=== PATIENT | male | born 1960 | race Caucasian/White ===

== ENCOUNTER 2023-08-03 19:13 | Emergency (ER) | payer OTHER, SELFPAY ==
[2023-08-03] VITALS (8 sets, daily range): BP systolic 167–217; BP diastolic 72–93; PULSE 112–127; RESP 19–29; TEMP 37.1; O2SAT 94–99; BMI 15.7
--- NOTE | 2023-08-03 19:52 | DI.RAD.S_ITS ---
PROCEDURE: XR CHEST 1V INDICATIONS: Shortness of breath TECHNIQUE: One view of the chest was acquired. COMPARISON: None. FINDINGS: Surgical changes and devices: None. Lungs and pleura: Lungs are clear. No pleural effusions or pneumothorax. Mediastinum: Mediastinal contours appear normal. Heart size is normal. Bones and chest wall: No suspicious bony lesions. Overlying soft tissues appear unremarkable. IMPRESSION: No acute cardiopulmonary abnormality is seen. Dictated by: Basil Bonilla M.D. on 08/03/2023 at 20:55 Approved by: Basil Bonilla M.D. on 08/03/2023 at 20:55
--- NOTE | 2023-08-03 20:10 | ED.SOB ---
HPI - SOB/Dyspnea General Chief Complaint: Shortness of Breath/Dyspnea Stated Complaint: SOB Time Seen by Provider: 08/03/23 20:00 Source: patient Mode of arrival: Wheelchair Limitations: no limitations History of Present Illness HPI Narrative: Patient 63-year-old female history of COPD thrush presenting today with increasing shortness of breath. She reports that 2 days ago she flew here from [place] since she has been here she has had increasing shortness of breath. Although it sounds like she went somewhere where she was diagnosed with thrush she was given swish and swallow medication but the bottles to big for her to carry on her carry. She is complaining of mild sore throat. Patient reports that she was just or 10 days of a prednisone taper she finished 3 days ago. Related Data Previous Rx's Medication Instructions Recorded nystatin 100,000 unit/mL oral 6 ml PO QID #500 mL 08/03/23 suspension prednisone 20 mg tablet 20 mg PO DAILY #5 tabs 08/03/23 Allergies Allergy/AdvReac Type Severity Reaction Status Date / Time No Known Drug Allergies Allergy Verified 08/03/23 19:39 Patient History Social History Smoking Status: Former smoker Smoking Status: Former smoker tobacco type: cigarettes Substance Use Type: does not use Exam Initial Vital Signs Initial Vital Signs: Vital Signs Temperature 98.7 F 08/03/23 19:33 Pulse Rate 127 H 08/03/23 19:33 Respiratory Rate 22 08/03/23 19:33 Blood Pressure 181/81 H 08/03/23 19:33 Pulse Oximetry 97 08/03/23 19:33 Oxygen Delivery Method Room Air 08/03/23 19:33 GENERAL: Thin 63-year-old female without any acute distress or conversational dyspnea HEENT: Head atraumatic,EOMI, pupils reactive, face symmetric, moist mucous membranes PHARYNX: White thrush in throat no significant swelling or erythema CARDIOVASCULAR: Regular rate and rhythm without murmurs, rubs or gallops. RESPIRATORY: Decreased breath sounds bilaterally speaks in full sentence ABDOMEN: Soft, nontender. Normoactive bowel sounds all 4 quadrants. No guarding or rebound. : No CVA tenderness EXTREMITIES: Normal range of motion, no clubbing or edema. Neurovascularly intact NEUROLOGICAL: Alert and oriented x4. SKIN: Warm, dry, no laceration, no petechiae, no rashes or lesions. Course Orders Ordered: ED Orders 08/03/23 19:52 XR chest 1V Stat EKG-12 Lead Stat Measure peak expiratory flow ONCE RT Consult Eval and Treat NOW 08/03/23 20:00 Complete Blood Count AUTO DIFF Stat Comprehensive Metabolic Panel Stat Lactate (Lactic Acid) Stat NT-proBNP (BNP-Adult 18+) Stat Prothrombin Time INR Stat Troponin I Stat 08/03/23 20:09 CT angio chest PE protocol Stat 08/03/23 20:12 Covid-19 + FLU A/B + RSV - PCR Stat Discontinued Medications Albuterol/Ipratropium (Albuterol/Ipratropium 3 Ml Ampul) 3 ml INH NOW ONE Stop: 08/03/23 20:09 Last Admin: 08/03/23 20:22 Dose: 3 ml Documented By: ANGE Methylprednisolone (Methylprednisolone 125 Mg/2 Ml Vial) 125 mg IV NOW ONE Stop: 08/03/23 20:09 Last Admin: 08/03/23 20:23 Dose: 125 mg Documented By: DANY Vital Signs Vital signs: Vital Signs - 8 hr 08/03/23 20:30 08/03/23 20:30 08/03/23 21:00 Pulse Rate 118 H 117 H Respiratory Rate 29 H 19 Blood Pressure 184/85 H Pulse Oximetry 96 95 08/03/23 21:00 08/03/23 21:30 08/03/23 21:30 Pulse Rate 112 H Respiratory Rate 27 H Blood Pressure 167/72 H 184/83 H Pulse Oximetry 96 MDM - SOB/Dyspnea Lab Data 08/03/23 20:00 08/03/23 20:00 Labs: Lab Results 08/03/23 08/03/23 Range/Units 20:00 20:12 WBC 9.1 (4.5-11.0) X10^3/uL RBC 4.86 (4.5-5.9) X10^6/uL Hgb 14.3 (13.5-17.5) g/dL Hct 43.4 (41-53) % MCV 89.3 (80-100) fL MCH 29.5 (26-34) PG MCHC 33.1 (30-36) % RDW 16.3 H (11.6-14.8) % Plt Count 503 H (150-400) X10^3/uL Neut % (Auto) 92.8 H (50-75) % Lymph % (Auto) 6.1 L (25-40) % [place] % (Auto) 0.8 L (3-14) % Eos % (Auto) 0.1 L (2-4) % Baso % (Auto) 0.2 (0-2) % Neut # (Auto) 8400 H (6178-5969) /uL Lymph # (Auto) 600 L (9706-4884) /uL [place] # (Auto) 100 (0-900) /uL Eos # (Auto) 0 (0-450) /uL Baso # (Auto) 0 (0-100) /uL PT 10.3 (9.4-12.5) SECONDS INR 0.9 (0.9-1.3) Sodium 138 (137-145) mmol/L Potassium 4.2 (3.4-5.1) mmol/L Chloride 104 (98-107) mmol/L Carbon Dioxide 25 (22-32) mmol/L BUN 15 (9-20) mg/dL Creatinine 0.85 (0.66-1.25) mg/dL Estimated GFR > 60 (>60) mL/min BUN/Creatinine Ratio 17.6 (6-22) Glucose 118 H (80-110) mg/dL Lactate 2.1 (0.7-2.1) mmol/L Calcium 9.6 (8.4-10.2) mg/dL Total Bilirubin 1.1 (0.2-1.3) mg/dL AST 36 (17-59) IU/L ALT 23 (<50) IU/L Alkaline Phosphatase 74 (38-126) U/L Troponin I < 0.012 (0.01-0.034) ng/mL NT-Pro-B Natriuret Pep 361 H (<125) pg/mL Total Protein 8.3 H (6.3-8.2) g/dL Albumin 4.8 (3.5-5.0) g/dL Globulin 3.5 (1.7-4.1) g/dL Albumin/Globulin Ratio 1.4 (1.0-2.8) SARS-CoV-2 (PCR) Negative (Negative) Influenza A (RT-PCR) Flu a negative (NEGATIVE) Influenza B (RT-PCR) Flu b negative (NEGATIVE) RSV (PCR) Negative (Negative) Imaging Data Chest x-ray: Radiologist's Impression: PROCEDURE: XR CHEST 1V INDICATIONS: Shortness of breath TECHNIQUE: One view of the chest was acquired. COMPARISON: None. FINDINGS: Surgical changes and devices: None. Lungs and pleura: Lungs are clear. No pleural effusions or pneumothorax. Mediastinum: Mediastinal contours appear normal. Heart size is normal. Bones and chest wall: No suspicious bony lesions. Overlying soft tissues appear unremarkable. IMPRESSION: No acute cardiopulmonary abnormality is seen. Dictated by: Basil Bonilla M.D. on 08/03/2023 at 20:55 CT scan - chest: Radiologist's Impression: PROCEDURE: CT ANGIO CHEST PE PROTOCOL INDICATIONS: hypoxia after flying TECHNIQUE: After the administration of intravenous contrast, 2 mm thick sections acquired from the pulmonary apices to the posterior costophrenic angles. 3-dimensional maximum intensity projection (MIP) coronal and sagittal reformats were then acquired through the thorax. For radiation dose reduction, the following was used: automated exposure control, adjustment of mA and/or kV according to patient size. COMPARISON: None. FINDINGS: Image quality: Diagnostic. Pulmonary arteries: Pulmonary arteries are normal in size, and demonstrate no intraluminal filling defects to suggest central pulmonary embolism. Lower Neck: No enlarged lymph nodes. Thyroid: No thyroid nodules which require sonographic follow up, per consensus guidelines. Axillae: No enlarged lymph nodes. Chest Wall: Unremarkable. Bones: Mild degenerative changes of the spine. Lungs and Pleura: No pneumothorax or pleural effusions. Biapical pleuroparenchymal scarring. Mild centrilobular emphysematous changes. Nodular opacity in the left upper lobe measuring approximately 6 mm (6/96) with mildly spiculated margins. Additional scattered pulmonary micro nodules measuring 3 mm or less are present. Heart: Heart size is normal. Mild coronary artery calcifications. No pericardial effusion. Thoracic Vessels: No aortic aneurysm. Atherosclerotic vascular calcifications. Mediastinum and [place]: No enlarged lymph nodes. Esophagus: No wall thickening. No hiatal hernia. Upper Abdomen: Visualized upper abdomen solid organs and bowel loops appear normal. IMPRESSION: No pulmonary embolus. No acute cardiopulmonary process. Nodular opacity within the left upper lobe measuring 6 mm with mildly spiculated margins. Recommend follow-up CT scan in 3-6 months to assess for stability or resolution. Dictated by: Basil Bonilla M.D. on 08/03/2023 at 21:19 ECG Data Attestation: I personally reviewed and interpreted this ECG as follows: Prior ECG tracings: not available for review Interpretation: Sinus rhythm rate 126 NH interval 112 QRS [address] changes or T-wave inversions no priors to compare MDM Narrative Medical decision making narrative: Patient is 63-year-old female presents today with increasing shortness of breath. She has a history of COPD she reports she quit smoking distal couple of weeks ago. She was just treated for COPD exacerbation at home and finish the prednisone a couple days ago. She then flew here from [place]. She is noted to be mildly tachycardic but she has absolutely no sign of respiratory distress. Blood work has been reviewed she does have elevated platelets of 503 but no leukocytosis or anemia, electrolytes and kidney function are stable, BNP 361 troponin is negative Imaging reviewed chest x-ray without cardiopulmonary process, CT angio did not show pulmonary embolism but does show a mildly spiculated 6 mm mass in the left upper lobe Patient presents today with increasing shortness of breath with recent travel. She ruled out for pulmonary embolism and was treated for a COPD exacerbation. She was given Solu-Medrol here in the ED. She does not have fever or leukocytosis or cough. This time I do not see any need for antibiotics. She was also just recently treated for a COPD exacerbation. She was noted to have thrush in her throat which is not a new. She also did not want to bring her bottle of nystatin because it did not fit in her carry on. At this time she seems to be doing better after nebulizer treatment. Will put her back on a couple days steroids. She is found to have a spiculated mass. This is concerning for cancer with her given history of smoking. I have discussed this with her she understands and needs to follow-up. She overall feels ready and able to go she has disconnected herself from the monitor. Discharge Plan Departure Patient Disposition: Home Clinical Impression: Acute exacerbation of chronic obstructive pulmonary disease, Mass of left lung Instructions: Chronic Obstructive Pulmonary Disease, DI for Lung Cancer Activity Restrictions/Additional Instructions: *You have been diagnosed with COPD exacerbation and left upper lobe lung mass *What to do: At this time you were found to have a left upper lobe lung mass which needs close follow-up. With her smoking history there is concern that this may be the beginning of cancer. *Continue to take medications as directed Prednisone 20 mg once a day for 5 days Nystatin swish and swallow *Follow up with your primary care provider in 2-3 days or call [phone] *Return to ER if you should have increasing shortness of breath confusion or any new, worsening or concerning symptoms Prescriptions: New prednisone 20 mg tablet 20 mg PO DAILY Qty: 5 0RF nystatin 100,000 unit/mL suspension 6 ml PO QID Qty: 500 0RF Rx Instructions: swish and swallow Referrals: Miscellaneous,Doctor, MD [Primary Care Provider] - Stand Alone Forms: Patient Portal/API
[2023-08-03 20:16] LABS: INR 0.9 (0.9-1.3); Prothrombin Time 10.3 SECONDS (9.4-12.5)
[2023-08-03 20:21] LABS: Lactate (Lactic Acid) 2.1 mmol/L (0.7-2.1)
[2023-08-03 20:22] LABS: Alanine Aminotransferase 23 IU/L (<50); Albumin 4.8 g/dL (3.5-5.0); Albumin Globulin Ratio 1.4 (1.0-2.8); Alkaline Phosphatase 74 U/L (38-126); Aspartate Aminotransferase 36 IU/L (17-59); BUN Creatinine Ratio 17.6 (6-22); Bilirubin Total 1.1 mg/dL (0.2-1.3); Blood Urea Nitrogen 15 mg/dL (9-20); Calcium 9.6 mg/dL (8.4-10.2); Carbon Dioxide 25 mmol/L (22-32); Chloride 104 mmol/L (98-107); Estimated Glomerular Filt Rate > 60 mL/min (>60); Globulin 3.5 g/dL (1.7-4.1); Glucose 118 mg/dL (80-110); HEMOLYSIS 24 (0-50); Potassium 4.2 mmol/L (3.4-5.1); Sodium 138 mmol/L (137-145); Total Protein 8.3 g/dL (6.3-8.2)
[2023-08-03] MEDS: ALBUTEROL/IPRATROPIUM 3 ML AMPUL INH (20:22)
[2023-08-03] MEDS: methylPREDNISolone 125 MG/2 ML VIAL IV (20:23)
[2023-08-03 20:27] LABS: Add Manual Diff / Slide Review NO; Basophils Absolute Auto 0 /uL (0-100); Basophils Percent Auto 0.2 % (0-2); Eosinophils Absolute Auto 0 /uL (0-450); Eosinophils Percent Auto 0.1 % (2-4); Hematocrit 43.4 % (41-53); Hemoglobin 14.3 g/dL (13.5-17.5); Lymphocytes Absolute Auto 600 /uL (1100-4500); Lymphocytes Percent Auto 6.1 % (25-40); Mean Corpuscular HGB Conc 33.1 % (30-36); Mean Corpuscular Hemoglobin 29.5 PG (26-34); Mean Corpuscular Volume 89.3 fL (80-100); Monocytes Absolute Auto 100 /uL (0-900); Monocytes Percent Auto 0.8 % (3-14); Neutrophils Absolute Auto 8400 /uL (1500-7000); Neutrophils Percent Auto 92.8 % (50-75); Platelet Count 503 X10^3/uL (150-400); Red Blood Cell Count 4.86 X10^6/uL (4.5-5.9); Red Cell Distribution Width 16.3 % (11.6-14.8); White Blood Cell Count 9.1 X10^3/uL (4.5-11.0)
[2023-08-03 20:34] LABS: NT-proBNP (BNP-Adult 18+) 361 pg/mL (<125); Troponin I < 0.012 ng/mL (0.01-0.034)
[2023-08-03 20:59] LABS: Influenza A - CEPHEID Flu A NEGATIVE (NEGATIVE); Influenza B - CEPHEID Flu B NEGATIVE (NEGATIVE); Respiratory Syncytial Virus Negative (Negative)
[2023-08-03 21:06] LABS: COVID-19 CEPHEID 4-PLEX PCR Negative (Negative)
[2023-08-03 21:40] LABS: Reflexed Lactate in 2 Hours Y
== END 2023-08-03 22:54 | disposition home or self-care (01) ==
PROVIDERS: Emergency Provider Emergency Medicine
DX: J44.1 Chronic obstructive pulmonary disease with (acute) exacerbation (principal); R91.8 Other nonspecific abnormal finding of lung field; J02.9 Acute pharyngitis, unspecified; Z20.822 Contact with and (suspected) exposure to COVID-19
CPT/HCPCS: 0241U; 36415; 71045; 71275; 80053; 83605; 83880; 84484; 85025; 85610; 93005; 94640; 96374; 99284; J2919; Q9967